=== PATIENT | female | born 1985 | race Caucasian/White ===

== ENCOUNTER 2018-10-01 15:43 | Emergency (ER) | payer MEDICAID ==
[~2018-10-01] VITALS: Ht 157.5 cm; Wt 50.7 kg
[2018-10-01 15:44] VITALS: BP 101/58
--- NOTE | 2018-10-01 15:51 | NUR ---
CONTACT WITH PT, 33 YR OLD FEMALE HERE WITH C/O "I HAVE A CYST OR HAVE A BARATHOLON CYST ON THE SAME SIDE, BUT ITS HIGHER VERY PAINFUL AND UNDERCOMFORTABLE" STARTED ON WEDNESDAY.
[2018-10-01] MEDS ORDERED: LIDOCAINE 1%, 10ML INFIL ONE (16:30)
[2018-10-01] MEDS ORDERED: OXYcodone/APAP 10/325MG TABLET PO ONE (16:30)
[2018-10-01] MEDS ORDERED: LIDOCAINE-MPF 1%, 5ML ONE (16:38)
[2018-10-01] MEDS ORDERED: OXYcodone/APAP 10/325MG TABLET ONE (17:05)
--- NOTE | 2018-10-01 17:36 | NUR ---
PT WITH DECREASE IN PAIN, "IT RELIEVED THE PRESSURE" NO IV TO DC, REVIEWED DC INSTRUCTIONS WITH PT, UNDERSTANDING VERBALIZED. PT LEFT AMB.
== END 2018-10-01 17:38 | disposition home or self-care (01) ==
LOC: ED 16:04
DX: N76.4 Abscess of vulva (principal); G43.909 Migraine, unspecified, not intractable, without status migrainosus; Z88.0 Allergy status to penicillin
CPT/HCPCS: 56405; 99284; J3490